=== PATIENT | female | born 1960 | race African-American/Black ===

== ENCOUNTER 2018-01-27 18:41 | Emergency (ER) | payer OTHER ==
[~2018-01-27] VITALS: Ht 157.5 cm; Wt 93.9 kg
[2018-01-27] MEDS ORDERED: CYCLOBENZAPRINE5 MG PO (20:29)
[2018-01-27] MEDS ORDERED: HYDROCODONE-AP1 EAC6 PO (20:29)
[2018-01-27 20:51] VITALS: BP 153/99
== END 2018-01-27 20:59 | disposition home or self-care (01) ==
LOC: EDBD 18:41 → ER 18:41
DX: S39.012A Strain of muscle, fascia and tendon of lower back, initial encounter (principal); S16.1XXA Strain of muscle, fascia and tendon at neck level, initial encounter; M25.561 Pain in right knee; M25.512 Pain in left shoulder; I10 Essential (primary) hypertension; Z88.0 Allergy status to penicillin; V89.2XXA Person injured in unspecified motor-vehicle accident, traffic, initial encounter; Y93.89 Activity, other specified; Y92.89 Other specified places as the place of occurrence of the external cause; Y99.8 Other external cause status

== ENCOUNTER 2019-01-14 19:57 | Emergency (ER) | payer OTHER ==
[~2019-01-14] VITALS: Ht 157.5 cm; Wt 93.9 kg
[~2019-01-14 19:57] MED LIST: CYCLOBENZAPRINE5 MG PO; HYDROCODONE-AP1 EAC6 PO; MOBIC15 MG PO; VALIUM5 MG PO
[2019-01-14] MEDS ORDERED: B/P PO (20:20)
[2019-01-14 22:00] LABS: ABSOLUTE NEUTROPHILS 3.7 thou/uL (1.4-8.2); EOSINOPHILS 1.8 % (0.0-3.0); HEMATOCRIT 41.4 % (37.0-47.0); HEMOGLOBIN 13.8 gm/dL (12.0-15.0); LYMPHOCYTES 36.8 % (24.0-44.0); MCH 28.6 pg (26.0-34.0); MCHC 33.2 g/dL (28.0-37.0); MCV 86.1 fL (80.0-100.0); MONOCYTES 9.8 % (1.0-8.0); PLATELET COUNT 136 thou/uL (150-400); POLYS 50.6 % (36.0-66.0); RBC 4.81 mil/uL (4.20-5.00); RDW 15.6 % (10.5-14.5); WBC 7.4 thou/uL (4.0-11.0)
[2019-01-14 22:11] LABS: CALCIUM 8.5 mg/dL (8.5-10.1); CREATININE 0.7 mg/dL (0.6-1.0); POTASSIUM 3.8 mmol/L (3.5-5.1)
[2019-01-14 23:07] VITALS: BP 146/90
== END 2019-01-14 23:08 | disposition home or self-care (01) ==
LOC: ER 19:57
PROVIDERS: Emergency Medicine
DX: M25.511 Pain in right shoulder (principal); M54.2 Cervicalgia; M54.5 Low back pain; I10 Essential (primary) hypertension; E78.00 Pure hypercholesterolemia, unspecified; J44.9 Chronic obstructive pulmonary disease, unspecified; K21.9 Gastro-esophageal reflux disease without esophagitis; F17.210 Nicotine dependence, cigarettes, uncomplicated; Z88.0 Allergy status to penicillin; V49.49XA Driver injured in collision with other motor vehicles in traffic accident, initial encounter; Y93.89 Activity, other specified; Y92.89 Other specified places as the place of occurrence of the external cause; Y99.8 Other external cause status

== ENCOUNTER 2019-04-28 16:06 | Emergency (ER) | payer OTHER ==
[~2019-04-28] VITALS: Ht 157.5 cm; Wt 93.9 kg
[~2019-04-28 16:06] MED LIST changes: +B/P PO
[2019-04-28] MEDS ORDERED: MIGRAINE (16:42)
[2019-04-28] MEDS ORDERED: COZAAR 25 MG TA25 M1 PO (16:42)
[2019-04-28] MEDS ORDERED: POTASSIUM20 PO (16:42)
[2019-04-28] MEDS ORDERED: PROZAC10 MG PO (16:42)
[2019-04-28 19:48] VITALS: BP 163/87
[2019-04-28] MEDS ORDERED: ULTRAM 50MG TAB50 MG PO (19:58)
[2019-04-28] MEDS ORDERED: MOBIC15 MG PO (19:58)
[2019-04-28] MEDS ORDERED: TIZANIDINE HCL4 MG PO (19:58)
== END 2019-04-28 20:30 | disposition home or self-care (01) ==
LOC: ER 16:06
DX: S00.83XA Contusion of other part of head, initial encounter (principal); M25.512 Pain in left shoulder; M25.561 Pain in right knee; F17.210 Nicotine dependence, cigarettes, uncomplicated; I10 Essential (primary) hypertension; E78.00 Pure hypercholesterolemia, unspecified; J44.9 Chronic obstructive pulmonary disease, unspecified; K21.9 Gastro-esophageal reflux disease without esophagitis; Z79.899 Other long term (current) drug therapy; Z88.0 Allergy status to penicillin; V49.49XA Driver injured in collision with other motor vehicles in traffic accident, initial encounter; Y93.89 Activity, other specified; Y92.413 State road as the place of occurrence of the external cause; Y99.8 Other external cause status

== ENCOUNTER 2021-09-08 11:28 | Emergency (ER) | payer BC ==
[~2021-09-08] VITALS: Ht 157.5 cm; Wt 95.3 kg
[~2021-09-08 11:28] MED LIST changes: +COZAAR 25 MG TA25 M1 PO; +MIGRAINE; +POTASSIUM20 PO; +PROZAC10 MG PO; +TIZANIDINE HCL4 MG PO; +ULTRAM 50MG TAB50 MG PO
[2021-09-08 11:41] VITALS: BP 171/93
[2021-09-08] MEDS ORDERED: CYCLOBENZAPRINE5 MG PO (11:45)
[2021-09-08] MEDS ORDERED: FLUOXETINE HCL40 MG PO (11:45)
[2021-09-08] MEDS ORDERED: AMLODIPINE BESY10 MG PO (11:45)
[2021-09-08] MEDS ORDERED: NORTRIPTYLINE H10 M1 (11:45)
[2021-09-08] MEDS ORDERED: CARVEDILOL25 MG PO (11:45)
[2021-09-08] MEDS ORDERED: TRAMADOL 50 MG50 MG PO (11:45)
[2021-09-08] MEDS ORDERED: CLARITIN10 MG PO (11:46)
[2021-09-08] MEDS ORDERED: TIZANIDINE HCL4 M1 PO (11:46)
[2021-09-08] MEDS ORDERED: OMEPRAZOLE40 MG PO (11:46)
[2021-09-08] MEDS ORDERED: HYDROCODON-ACE1 EAC7 PO ×2 (13:04→17:58)
== END 2021-09-08 13:02 | disposition home or self-care (01) ==
LOC: ER 11:28
DX: M79.602 Pain in left arm (principal); R07.81 Pleurodynia; M25.512 Pain in left shoulder; I10 Essential (primary) hypertension; E78.00 Pure hypercholesterolemia, unspecified; J44.9 Chronic obstructive pulmonary disease, unspecified; K21.9 Gastro-esophageal reflux disease without esophagitis; F17.210 Nicotine dependence, cigarettes, uncomplicated; F12.90 Cannabis use, unspecified, uncomplicated; Z79.1 Long term (current) use of non-steroidal anti-inflammatories (NSAID); Z79.891 Long term (current) use of opiate analgesic; Z79.899 Other long term (current) drug therapy; Z88.0 Allergy status to penicillin; W07.XXXA Fall from chair, initial encounter; Y93.89 Activity, other specified; Y92.89 Other specified places as the place of occurrence of the external cause; Y99.8 Other external cause status